=== PATIENT | male | born 1995 | race African-American/Black ===

== ENCOUNTER 2017-06-28 07:06 | Day surgery (SDC) | payer OTHER ==
[~2017-06-28 07:06] MED LIST: ACETAMINOPHEN 100 ML IV ONE; FENTANYL CITRATE INJ/PF 100 MCG/2 ML AMPUL ONE; MIDAZOLAM 2 MG/2 ML INJ ONE; PROPOFOL INJ 200 MG/20 ML VIAL IV ONE; SUCCINYLCHOLINE CHLORIDE INJ 200 MG/10 ML VIAL ONE
[2017-06-28] MEDS ORDERED: CEFAZOLIN 2 GM/D5W RTU 2 GM/50 ML RTUPB IV PRN (08:13)
[2017-06-28] MEDS ORDERED: BUPIVACAINE HCL 0.5%-EPI 1:200000 INJ/PF 30 ML VIAL ONE (08:35)
--- NOTE | 2017-06-29 07:38 | SURGICARE OPERATIVE REPORT E ---
[facility] NAME: ARTHUR NEELY AGE: 22Y DATE OF SURGERY: 06/28/2017 ROOM: PREOPERATIVE DIAGNOSIS: RIGHT UPPER NECK MASS. POSTOPERATIVE DIAGNOSIS: RIGHT UPPER NECK MASS. OPERATION: Right upper neck/Level 1b neck dissection with resection of the mass and surrounding lymph nodes. SURGEON: ELLIOT FOSS D.O. ANESTHESIA: General endotracheal tube. ANESTHESIA STAFF: Lavon RAMOS ESTIMATED BLOOD LOSS: 5 mL. FLUIDS: COMPLICATIONS: None. DRAINS: None. SPONGE COUNT: Verified. NEEDLE COUNT: Verified. TISSUE REMOVED OR ALTERED: Materials forwarded as specimen: Right upper neck mass/Level 1b mass with surrounding lymph nodes; the mass was greater than 2 x 3 cm in size. INDICATIONS: This is a 22-year-old male, active duty, [employer], who was seen and evaluated in the [facility] office. The patient had been referred for, and he complained of a 4 year history of a right upper neck mass that would wax and wane in size. 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 Current local area CT neck with contrast revealed a right upper neck/Level 1b mass with surrounding lymph nodes that appeared separate, but directly adjacent to the right submandibular gland. The patient underwent fine needle aspiration biopsy in the office with lymphocytes noted. 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 RECOMMENDATION AND PLAN: After extensive discussion with the patient and his chain of command was for definitive surgical management with right upper neck/Level 1b neck dissection with resection of the mass and surrounding lymph nodes. The patient voiced an understanding of the described surgical plan, agreed to proceed, and consent was obtained. PROCEDURE: The patient was taken to the main operating room and placed on the operating room table in the supine position. Appropriate monitors were placed. Using mask and IV access, general anesthesia was induced. The patient was transorally intubated without difficulty. The patient was positioned and prepped for right neck surgery. The planned surgical incision site was marked, followed by infiltration with local anesthetic with epinephrine. The patient was then prepped and draped in the sterile fashion for neck surgery. The skin was sharply incised and carried down through the level of the platysma. There was subplatysmal dissection that was carried out with identification of the mass. Bipolar cautery was used throughout the case for adequate hemostasis. The mass was clearly identified along the surrounding lymph nodes and this was resected and passed off for permanent pathology evaluation. There were no other concerning masses or lymphadenopathy noted on manual examination. The wound bed was thoroughly irrigated. There was adequate hemostasis noted. A 2 x 2 cm portion of Surgicel was placed into the wound bed. The surgical site was closed in a layered fashion with 5-0 Monocryl to reapproximate the platysmal layer followed by reapproximation of the subcutaneous and deep dermal layers. Next, the skin margins were reapproximated with 6-0 Prolene suture. The skin was cleaned and dried followed by placement of Bacitracin ointment, Telfa, and a Fluffs pressure dressing. The patient was then returned to the anesthesia staff and was allowed to emerge from general anesthesia. The patient was extubated in the main operating room and was transported to the postanesthesia recovery unit in stable condition. There were no complications. DICTATING PHYSICIAN: ELLIOT FOSS D.O. [id number] PHY#: [id number] ID: [id number] JOB#: [id number] ACCT: [id number] cc:ELLIOT FOSS D.O. > MTDD
== END 2017-06-28 12:12 | disposition home or self-care (01) ==
LOC: SC 07:06
PROVIDERS: ATTEND Otolaryngology
PROC: 07T10ZZ Resection of Right Neck Lymphatic, Open Approach (ICD-10-PCS; principal; 2017-06-28 08:15)
DX: R59.1 Generalized enlarged lymph nodes (principal)
CPT/HCPCS: 88185 ×15; 88184; 88233; 88262; 88342 ×2; 88341 ×2; 88305 ×2; 38510; J2250; J3490; J3010; J0330; J2704; J0690; J0131; 300